=== PATIENT | female | born 1975 | race Caucasian/White ===

== ENCOUNTER 2023-03-28 12:46 | Outpatient (CLI) | payer OTHER, BC, SELFPAY | END 2023-03-28 12:47 | disposition home or self-care (01) | PROVIDERS: PCP Family Medicine; Visit Provider Family Medicine | DX: M54.16 Radiculopathy, lumbar region (principal); M51.36 Other intervertebral disc degeneration, lumbar region | CPT/HCPCS: 62323; J0702; Q9966 ==

== ENCOUNTER 2023-05-19 12:46 | Outpatient (CLI) | payer OTHER, BC, SELFPAY | END 2023-05-19 12:47 | disposition home or self-care (01) | LOC: INJ CL 12:46 | PROVIDERS: PCP Family Medicine; Visit Provider Family Medicine | DX: M54.16 Radiculopathy, lumbar region (principal); M51.36 Other intervertebral disc degeneration, lumbar region | CPT/HCPCS: 64483; J1100; Q9966 ==

== ENCOUNTER 2023-09-22 08:06 | Outpatient (CLI) | payer OTHER, BC, SELFPAY | END 2023-09-22 08:07 | disposition home or self-care (01) | LOC: INJ CL 08:10 | PROVIDERS: PCP Family Medicine; Visit Provider Family Medicine | DX: M53.3 Sacrococcygeal disorders, not elsewhere classified (principal) | CPT/HCPCS: 27096; 64493; J0702; Q9966 ==

== ENCOUNTER 2024-02-23 08:14 | Outpatient (CLI) | payer OTHER, BC, SELFPAY | END 2024-02-23 08:15 | disposition home or self-care (01) | LOC: INJ CL 08:16 | PROVIDERS: Visit Provider Family Medicine | DX: M53.3 Sacrococcygeal disorders, not elsewhere classified (principal) | CPT/HCPCS: 27096; J0702; Q9966 ==